=== PATIENT | female | born 1960 | race Caucasian/White ===

== ENCOUNTER 2019-07-10 08:47 | Day surgery (SDC) | payer MEDICAID ==
[~2019-07-10] VITALS: Ht 157.5 cm; Wt 75.0 kg
[~2019-07-10 08:47] MED LIST: ACET-2247 PO; METF-960 PO; SODIUM CHLORIDE 0.9% 1,000 ML IV ONE
[2019-07-10] MEDS ORDERED: LIDOCAINE/PF 2% 5 ML VIAL IM ONE (08:48)
[2019-07-10] MEDS ORDERED: PROPOFOL 1% 20 ML VIAL IVP ONE (08:48)
[2019-07-10 10:00] LABS: GLUCOMETER DEV NAME(LOC) SDS.; GLUCOSE,POINT OF CARE 94 MG/DL (70-110)
[2019-07-10] MEDS ORDERED: OXYGEN THERAPY IH SCH (20:00)
== END 2019-07-10 12:40 | disposition home or self-care (01) ==
LOC: SURGERY 08:47
PROVIDERS: ATTEND Specialist
DX: R10.9 Unspecified abdominal pain (principal); K64.1 Second degree hemorrhoids; I10 Essential (primary) hypertension; E11.9 Type 2 diabetes mellitus without complications; Z98.51 Tubal ligation status; Z98.890 Other specified postprocedural states
CPT/HCPCS: 45378; 82962; J2704; J3490; J7030

== ENCOUNTER 2019-07-31 06:28 | Day surgery (SDC) | payer MEDICAID ==
[~2019-07-31] VITALS: Ht 157.5 cm; Wt 73.6 kg
[2019-07-31] MEDS ORDERED: SODIUM CHLORIDE 0.9% 1,000 ML IV ONE (07:15)
[2019-07-31] MEDS ORDERED: PROPOFOL 1% 20 ML VIAL IVP ONE (12:00)
[2019-07-31] MEDS ORDERED: LIDOCAINE/PF 2% 5 ML VIAL INJ ONE (12:00)
[2019-07-31 13:59] LABS: GLUCOMETER DEV NAME(LOC) SDS.; GLUCOSE,POINT OF CARE 119 MG/DL (70-110)
== END 2019-07-31 10:55 | disposition home or self-care (01) ==
LOC: SURGERY 06:28
PROVIDERS: ATTEND Internal Medicine Gastroenterology
DX: R10.13 Epigastric pain (principal); R14.0 Abdominal distension (gaseous); K29.50 Unspecified chronic gastritis without bleeding; K44.9 Diaphragmatic hernia without obstruction or gangrene; E11.9 Type 2 diabetes mellitus without complications; Z90.12 Acquired absence of left breast and nipple; Z85.3 Personal history of malignant neoplasm of breast; Z79.84 Long term (current) use of oral hypoglycemic drugs
CPT/HCPCS: 43239; 82962; 88305; 88312; 88313; C1769; J2704; J3490; J7030